=== PATIENT | female | born 1980 | race Caucasian/White ===

== ENCOUNTER 2024-11-14 11:55 | Outpatient (CLI) | payer OTHER, SELFPAY ==
[2024-11-16 02:54] LABS: HPV Source Cervix; HPV, High Risk by TMA Not Detected
== END 2024-11-14 11:56 | disposition home or self-care (01) ==
PROVIDERS: Visit Provider Registered Nurse
DX: Z12.4 Encounter for screening for malignant neoplasm of cervix (principal)
CPT/HCPCS: 87624; 87625; 88141; 88142

== ENCOUNTER 2024-11-16 08:41 | Outpatient (CLI) | payer OTHER, SELFPAY ==
--- NOTE | 2024-11-16 08:45 | CRLHL7_ITS ---
For Patients: As a result of the Century Cures Act, medical imaging exams and procedure reports are released immediately into your electronic medical record. You may view this report before your referring provider. If you have questions, please contact your health care provider. BILATERAL SCREENING MAMMOGRAM WITH COMPUTER-AIDED DETECTION AND TOMOSYNTHESIS TECHNIQUE: CC and MLO views were obtained. These mammographic images have been obtained using full-field digital technique. These mammographic images were interpreted with the benefit of computer-aided detection. Breast Tomosynthesis was used in this interpretation. COMPARISON FILM: Baseline. FINDINGS: There are scattered areas of fibroglandular density. IMPRESSION: There is no radiographic evidence for malignancy. ASSESSMENT: BI-RADS Category 1: Negative RECOMMENDATION: Routine screening mammogram in 1 year. A lay language report of this examination will be provided to the patient. Taye Lutz M.D. Diagnostic Radiologist [email or web address] SP/Dictated by: Taye Lutz MD @ 11/21/2024 1:04:00 PM (Electronically Signed)
== END 2024-11-16 08:42 | disposition home or self-care (01) ==
LOC: MAMMO 08:42
PROVIDERS: Visit Provider Registered Nurse
DX: Z12.31 Encounter for screening mammogram for malignant neoplasm of breast (principal)
CPT/HCPCS: 77063; 77067; T1013

== ENCOUNTER 2025-05-28 08:46 | Outpatient (CLI) | payer MEDICAID, SELFPAY | END 2025-05-28 08:47 | disposition home or self-care (01) | PROVIDERS: Visit Provider Family Medicine | DX: Z13.6 Encounter for screening for cardiovascular disorders (principal); Z13.1 Encounter for screening for diabetes mellitus; N92.0 Excessive and frequent menstruation with regular cycle | CPT/HCPCS: 80048; 80061; 84443 ==

== ENCOUNTER 2025-06-08 09:01 | Outpatient (CLI) | payer MEDICAID, SELFPAY ==
--- NOTE | 2025-06-08 09:15 | CRLHL7_ITS ---
For Patients: As a result of the 21st Century Cures Act, medical imaging exams and procedure reports are released immediately into your electronic medical record. You may view this report before your referring provider. If you have questions, please contact your health care provider. EXAM: MRI OF THE RIGHT KNEE, WITHOUT CONTRAST CLINICAL INDICATION: Knee pain. COMPARISON PLAIN FILMS: Internal derangement of the right knee. COMPARISON CROSS-SECTIONAL IMAGING STUDIES: None available at time of interpretation. TECHNICAL: Axial, sagittal and coronal T1, PD, PD FS and T2 FS images. Knee coil. FINDINGS: MEDIAL COMPARTMENT: Medial Meniscus: Displaced bucket-handle tear of the medial meniscus. The displaced bucket-handle fragment is flipped into the intercondylar notch. The bucket-handle fragment counselor greater than half the meniscal volume. No tear the displaced fragment. Articular Cartilage: Articular surfaces appear smooth without focal articular cartilage defect or subchondral marrow changes. - LATERAL COMPARTMENT: Lateral Meniscus: Normal size and morphology without tear. Articular Cartilage: Focal 0.3 cm moderate chondral fissure with mild subchondral edema in the lateral femoral condyle (grade 3). - PATELLOFEMORAL COMPARTMENT: Articular Cartilage: Mild chondral fraying at the patellar apex (grade 2). - CRUCIATE LIGAMENTS: Anterior Cruciate Ligament: The ACL fibers are diminutive and horizontally oriented consistent with a chronic tear. Posterior Cruciate Ligament: Normal. - MEDIAL COLLATERAL LIGAMENT AND POSTEROMEDIAL CORNER COMPLEX: Medial Collateral Ligament: Normal. Medial Head of the Gastrocnemius and Semimembranosus Tendons: Normal. - LATERAL COLLATERAL LIGAMENT COMPLEX AND POSTEROLATERAL CORNER COMPLEX: Fibular Collateral Ligament: Normal. Distal Biceps Femoris Tendon Complex: Normal. Iliotibial Band: Normal. Popliteus Tendon: Normal. Posterolateral Corner Capsule: Normal. - EXTENSOR MECHANISM: Distal Quadriceps Tendon: Normal. Patellar Tendon: Normal. Medial Patellar Retinaculum and Medial Patellofemoral Ligament: Normal. Lateral Patellar Retinaculum: Normal. Normal patellar alignment. No patella denton. Normal trochlear depth. Normal lateral trochlear inclination. - JOINT SPACE: Effusion: Trace joint effusion. No popliteal cyst. Joint Bodies: None seen. - OSSEOUS STRUCTURES: No fracture, marrow edema or marrow replacement process. - PERIARTICULAR SOFT TISSUES: Periarticular Cysts or Ganglia: None. Bursae: No prepatellar, superficial infrapatellar, deep infrapatellar, pes anserinus or semimembranosus/MCL bursitis. Musculature: No muscle atrophy or muscle edema. Subcutaneous and Soft Tissues: No subcutaneous or soft tissue mass, edema or fluid collection. Neurovascular Structures: Normal. IMPRESSION: 1. Chronic ACL tear. 2. Displaced bucket-handle tear of the medial meniscus. The bucket-handle fragment is flipped into the intercondylar notch and accounts for greater than half of the meniscal volume. 3. Small focal moderate chondral fissure in the lateral femoral condyle. 4. Mild chondromalacia of the patellar apex. 5. Trace knee joint effusion. Dictated by Duncan Ewing MD @ 06/08/2025 12:32:51 PM (Electronically Signed)
== END 2025-06-08 09:02 | disposition home or self-care (01) ==
LOC: MRI 09:11
PROVIDERS: PCP Family Medicine; Visit Provider Family Medicine
DX: M25.561 Pain in right knee (principal); S83.511A Sprain of anterior cruciate ligament of right knee, initial encounter; S83.241A Other tear of medial meniscus, current injury, right knee, initial encounter; M22.41 Chondromalacia patellae, right knee; M25.461 Effusion, right knee; M23.91 Unspecified internal derangement of right knee
CPT/HCPCS: 73721; T1013